=== PATIENT | female | born 1965 | race Caucasian/White ===

== ENCOUNTER 2021-04-24 09:11 | Outpatient (REF) | payer OTHER, SELFPAY ==
--- NOTE | ~2021-04-24 | US_ITS ---
EXAMINATION: US COMPLETE ABDOMEN WITH LIVER ELASTOGRAPHY CLINICAL INFORMATION: Abnormal blood chemistry. COMPARISON: None. TECHNIQUE: Real-time imaging of the abdominal viscera. Noninvasive ultrasound liver fibrosis assessment is performed using Leon ElastPQ point quantification shear wave elastography (pSWE) with a C5-2 MHz transducer. Multiple elastography samples are obtained. FINDINGS: PANCREAS: Normal. The visualized pancreatic head and body are normal in appearance. The remainder of the pancreas is obscured from visualization by the overlying bowel gas. ABDOMINAL AORTA: The proximal, middle, and distal aortic segments are normal in caliber. INFERIOR VENA CAVA: Visualized portions are normal. LIVER: The liver demonstrates normal size, contour and echogenicity. There is a solid mass seen in the midline isoechoic to the liver and spleen. No intrahepatic biliary duct dilatation. The right lobe measures 15.5 cm in length. The left lobe measures 10.1 cm in length. Portal flow is hepatopedal. Shear wave liver elastography median stiffness is 1.25 m/s (reference: normal median stiffness is 1.3 m/s or less). IQR/median stiffness to assess sampling precision is 0.25 (reference: good quality data set is IQR/median stiffness of 0.15 or less). GALLBLADDER: There is a small nonmobile echogenic polyp measuring 0.6 x 0.5 x 0.5 cm. No echogenic stone or wall thickening seen. COMMON BILE DUCT: Normal in caliber measuring 0.4 cm in diameter. RIGHT KIDNEY: Normal. No hydronephrosis. No renal calculi or focal parenchymal lesions. The kidney measures 10.4 cm in maximum dimension. LEFT KIDNEY: Normal. No hydronephrosis. No renal calculi or focal parenchymal lesions. The kidney measures 10.9 cm in maximum dimension. SPLEEN: Normal. The spleen measures 12.4 cm in maximum dimension. FREE FLUID: None. US/US abdomen comp w elastography IMPRESSION: 1. Soft tissue mass isoechoic to the liver and spleen in the midline. It appears to be a splenic mass or accessory splenule. Liver mass cannot be excluded. Recommend CT abdomen without and with contrast. 2. Liver elastography: Median liver stiffness is 1.25 suggestive of high probability normal study. REFERENCE: Society of Radiologists in Ultrasound Liver Stiffness Thresholds (2020): LIVER STIFFNESS THRESHOLDS: *Liver Stiffness equal or less than 1.3 m/s: High probability of being normal. *Liver Stiffness less than 1.7 m/s: In the absence of other known clinical signs, rules out compensated advanced chronic liver disease. *Liver Stiffness 1.7-2.1 m/s: Suggestive of compensated advanced chronic liver disease but need further test for confirmation. *Liver Stiffness over 2.1 m/s: Rules in compensated advanced chronic liver disease. *Liver Stiffness over 2.4 m/s: Suggestive of clinically significant portal hypertension. QUALITY OF DATA SET: *IQR/Median value equal or less than 0.15 implies a quality data set. *IQR/Median value over 0.15 implies a poor quality data set. SIGNIFICANT CHANGE FROM PRIOR EXAM: Significant change if liver stiffness measurement is 10% or greater from prior exam. OTHER CONSIDERATIONS: The stage of liver fibrosis may be overestimated in the setting of acute hepatitis, liver inflammation, elevated liver function tests, hepatic vascular congestion, obstructive cholestasis, non-fasting state, and infiltrative diseases such as amyloidosis and lymphoma. In some patients with NAFLD, the liver stiffness thresholds for compensated advanced chronic liver disease may be lower. In causes other than viral hepatitis and NAFLD, liver stiffness thresholds are not well established.
== END 2021-04-24 09:12 | disposition home or self-care (01) ==
LOC: HO.US 09:11
PROVIDERS: PCP Internal Medicine; Visit Provider Internal Medicine Medical Oncology
DX: R79.89 Other specified abnormal findings of blood chemistry (principal); Z80.9 Family history of malignant neoplasm, unspecified
CPT/HCPCS: 76705; 76981

== ENCOUNTER → 2024-03-23 10:43 | Outpatient (RCR) | payer OTHER, SELFPAY ==
--- NOTE | 2021-04-03 14:18 | PM.HEMONCCN ---
Subjective - Subjective Chief complaint: Consult for: 1. Elevated B12 level. 2. Family history of cancer esophagus Patient: new to practice Consult date: 04/03/21 Requesting Physician: James ceron. Medical Summary: DIAGNOSIS: HIGH B12 LEVEL. FAMILY HISTORY OF CA ESOPHAGUS. HPI - Consult Narrative Reason for consult: Consult for: 1. Elevated B12 level. 2. F.H of carcinoma of Esophagus. Narrative: Yamini Serrano is a pleasant 55 year old lady who has been referred for: 1. Elevated B12 level. 2. Family history of carcinoma of the esophagus with liver Mets. She tells me that her B12 level has been elevated since 2018. She had a level tested in December and again in February. 12/15: B12 07/18/2005. 03/12: B12 1415. Rest of her CBC and chemistries have been normal. ROS: She does feel tired at times. More so over the past month. No fever chills no night sweats. Occasional hot flashes. She has been going through menopause over the past 6-7 years. Appetite is too good. Weight is up. Sometimes she notices a waves of unsteadiness. She almost passes out. These are brief. Denies chest pain or trouble breathing. Occasional left upper quadrant pain. No nausea. Nor vomiting. Occasional heartburn. Bowels are working without any gross blood in it. She had a colonoscopy 2019 at [facility] by Dr. Alaina Bird. No dysuria or hematuria. She has chronic joint pains. History of scoliosis. Denies any focal deficits. Has low-grade depression. No skin rashes nor pruritus. FAMILY HISTORY: Dad was diagnosed with carcinoma the esophagus with liver lung and bone metastases at the age of 65. He within a month. Mom was recently diagnosed with squamous cell carcinoma of the lung. She had underwent chemotherapy. A brother with skin cancer. SOCIAL HISTORY: She is a musician. She lives with her cat. She is not . No children. She is a vegetarian. Sometimes vegan. Denies smoking nor alcohol use. Review of Systems - Constitutional Reports system reviewed and no additional complaints, except as documented, Reports lack of energy, Reports weight gain, Denies fever(s), Denies headache(s) - Eyes Reports system reviewed and no additional complaints, except as documented - ENT Reports system reviewed and no additional complaints, except as documented - Cardiovascular Reports system reviewed and no additional complaints, except as documented - Respiratory Reports no additional respiratory complaints - Gastrointestinal Reports system reviewed and no additional complaints, except as documented - Genitourinary Reports no additional female genitourinary complaints - Musculoskeletal Reports system reviewed and no additional complaints, except as documented - Integumentary/Breasts Skin/Breast: Reports no additional skin complaints - Neurologic Reports system reviewed and no additional complaints, except as documented - Psychiatric Reports system reviewed and no additional complaints, except as documented - Endocrine Reports no additional endocrine complaints - Hematologic/Lymphatic Reports system reviewed and no additional complaints, except as documented - Allergic/Immunologic Reports system reviewed and no additional complaints, except as documented Oncology Screenings - ECOG Performance Status ECOG Performance Status: 0 PMFSH Medical History: Medical History (Last Reviewed 04/03/21 @ 14:53 by Yogesh Whelan) Acute internal derangement of knee Anxiety Bunion of great toe of left foot Dry eye of left side Elevated vitamin B12 level Environmental allergies Glomus jugulare tumor Hypothyroidism Impacted cerumen of left ear Neuropathy Primary osteoarthritis of right hand Scoliosis Shortness of breath Tendonitis Tonsillar enlargement Functional capacity: independent ambulation Patient : No Family History: Family History (Last Updated 04/03/21 @ 15:01 by Yogesh Whelan) Family/Other Type 2 diabetes mellitus Mother Type 2 diabetes mellitus Emphysema lung Father Hypertension Esophageal cancer Brother Asthma Skin cancer Surgical History: Surgical History (Last Updated 04/03/21 @ 14:53 by Yogesh Whelan) H/O dilation and curettage History of repair of ACL S/P right knee arthroscopy [place] teeth extracted Social History: Social History Nutrition Assessment: Patient : No Home Medications and Allergies Home Medications Medication Instructions Recorded Confirmed Type cholecalciferol (vitamin D3) 50 1 cap PO DAILY 04/03/21 04/03/21 History mcg (2,000 unit) capsule fexofenadine 180 mg tablet 1 tab PO DAILY PRN 04/03/21 04/03/21 History levothyroxine 75 mcg tablet 75 mcg PO DAILY 04/03/21 04/03/21 History Allergies Allergy/AdvReac Type Severity Reaction Status Date / Time penicillin V Allergy Unknown Verified 09/17/16 00:00 Sulfa (Sulfonamide Allergy Unknown Verified 09/17/16 00:00 Antibiotics) Clindamycin HCl Allergy Unknown Uncoded 09/17/16 00:00 Physical Exam - Constitutional Present: no acute distress - Routine HEENT Exam Head: Present: normal inspection ENT: Present: mucous membranes moist - Routine Neck Exam Present: supple - Routine Respiratory Exam Present: CTAB - Routine Cardiovascular Exam Cardiovascular: Present: RRR, S1, S2 - Routine Abdominal Exam Present: normal bowel sounds, soft, nontender - Routine Extremities Exam Present: nontender - Routine Skin Exam Present: intact, normal turgor - Routine Neurological Exam Present: alert, oriented X3 - Detailed Neurological Exam: Coma Scale Eye Opening: Spontaneous (4) Verbal Response: Oriented (5) Motor Response: Obeys commands (6) [place] Coma Scale Total: 15 - Routine Psychiatric Exam Present: normal affect Assessment and Plan Patient Active problem list reviewed?: Yes (1) Elevated vitamin B12 level Status: Acute Assessment and plan: DATA BASE: From 03/12: CBC: WBC 5.6, HGB 12.5, HCT 36.8, MCV 88.9, PLT 186. CMP: Lytes WNL, glucose 95, BUN 9, creatinine 0.7, Rolf 9.6, albumin 4.6. LFTs: 0.7/95/21/11. TSH 4.57. B12 1415. From 12/15: B12 1506. Folic acid: 14.7. CRP:0.3. This is a pleasant 55-year-old lady with a history of persistently elevated B12 level, since 2018. B12 was 1450 in December. Repeat 07/18/2005 in February. The significance is controversial. In 1 study persistence of elevated B12 was associated with a high incidence of solid cancer at 60 months in contrast to a transient B12 elevation. Solid cancers the present one of the main diagnoses found in patients with an unexplained and persistently elevated B12. The risk of solid cancer seems insufficient to systematically perform invasive and expensive investigations. However one cannot propose B12 measurement is a screening marker for solid cancer at the stage. PLAN: I will proceed with abdominal ultrasound to assess her liver and kidneys, establish a baseline. She already had an upper endoscopy and colonoscopy, couple of years ago. She will have the studies repeated at 3 years. She will return in 3 months for a follow-up. Will repeat labs at that time. Thank you, CC: Dr. James ceron. (2) Family history of esophageal cancer Status: Acute Assessment and plan: This is a pleasant 55-year-old lady with a family history of metastatic carcinoma of the esophagus. His dad developed it at the age of 65. However he was a smoker. She does not smoke. She already had an EGD and colonoscopy couple of years ago at [facility]. PLAN: She will go for repeat endoscopy in a couple of years time. Will check a baseline ultrasound of the abdomen. Will monitor for any symptoms. She will return in 3 months for a follow-up visit. Thank you, CC: Dr. James Ceron. - Time Spent With Patient Time Spent with Patient (in minutes): 35
[2021-04-03 14:41] VITALS: BP 118/66; PULSE 61; RESP 20; TEMP 36.4; O2SAT 99; BMI 22.3
--- NOTE | 2021-04-03 16:19 | MHC.HEMONCMA ---
Pt came in for onc f/u and states they are doing well. clinical summary was updated and labs were drawn. pt will be in 3 months for f/u on 10/01/21
== END | disposition home or self-care (01) ==
LOC: HO.ONC 04-03 14:04
PROVIDERS: Referring Provider Internal Medicine; Visit Provider Internal Medicine Medical Oncology
DX: R79.89 Other specified abnormal findings of blood chemistry (principal); Z80.0 Family history of malignant neoplasm of digestive organs; Z80.1 Family history of malignant neoplasm of trachea, bronchus and lung; Z80.8 Family history of malignant neoplasm of other organs or systems
CPT/HCPCS: 99204